=== PATIENT | female | born 1945 | race Caucasian/White ===

== ENCOUNTER 2018-01-17 13:58 | Observation (INO) ==
[2018-01-17 14:32] LABS: Basophils # 0.1 10*3/uL (0.0-0.2); Basophils % 0.4 % (0.0-0.8); Eosinophils # 0.3 10*3/uL (0.0-0.87); Eosinophils % 2.1 % (0.00-10.9); Hematocrit 36.2 VOL% (35.7-47.0); Hemoglobin 11.6 GM/DL (12.0-16.0); Immature Granulocytes % 0.6 %; Immature Granulocytes Absolute 0.07 #; Lymphocytes # 1.8 10*3/uL (1.4-4.0); Lymphocytes % 15.7 % (21.3-54.2); Mean Corpuscular Hemoglobin 27 PG (27-34); Mean Corpuscular Volume 84.2 FL (87-102); Mean Platelet Volume 9.5 FL (9.6-12.0); Monocytes # 0.9 10*3/uL (0.11-0.8); Monocytes % 7.4 % (1.7-12.7); Neutrophils # 8.6 10*3/uL (1.4-7.4); Neutrophils % 73.8 % (38.7-73.9); Platelet Count 288 T/CUMM (130-400); Red Cell Distribution Width 13.8 % (9.3-17.3); White Blood Count 11.7 T/CUMM (4-12)
[2018-01-17 15:07] LABS: Albumin 3.5 G/DL (3.4-5.0); Bilirubin,Total 0.4 MG/DL (0.2-1.0); Calcium 8.7 MG/DL (8.5-10.1); Osmolality,Calculated 284.5 MOS/KG (273-304); Potassium 4.5 MMOL/L (3.5-5.1); Total Protein 6.5 G/DL (6.4-8.3)
[2018-01-17] MEDS ORDERED: NITROGLYCERIN SL 0.4 MG TABLET SL ONE (15:17)
[2018-01-17] MEDS ORDERED: ENOXAPARIN 30 MG/0.3 ML SYRINGE SUBCUT STA (15:23)
[2018-01-17] MEDS ORDERED: ENOXAPARIN 100 MG/ML SYRINGE SUBCUT ONE (16:03)
[2018-01-17] MEDS ORDERED: MAGNESIUM SULF RIDER 2 GM in PREMIX 1 EACH IV PRN ×2 (16:27→16:35)
[2018-01-17] MEDS ORDERED: MORPHINE 2 MG/1 ML SYRINGE IV PRN (16:27)
[2018-01-17] MEDS ORDERED: ZALEPLON 5 MG CAPSULE PO PRN (16:27)
[2018-01-17] MEDS ORDERED: POTASSIUM CHLORIDE 20 MEQ TABLET PO PRN (16:27)
[2018-01-17] MEDS ORDERED: NITROGLYCERIN 2% OINT 1 INCH/GM PACK TOP SCH (16:27)
[2018-01-17] MEDS ORDERED: BISACODYL 5 MG TABLET PO PRN (16:27)
[2018-01-17] MEDS ORDERED: ACETAMINOPHEN 325 MG TABLET PO PRN (16:27)
[2018-01-17] MEDS ORDERED: INSULIN REGULAR 100 UNIT/ML SUBCUT ONE (16:27)
[2018-01-17] MEDS ORDERED: ONDANSETRON 4 MG/2 ML VIAL IV PRN (16:27)
[2018-01-17] MEDS ORDERED: SODIUM CHLORIDE 0.45% 1,000 ML IV SCH (16:30)
[2018-01-17] MEDS ORDERED: CLOPIDOGREL 75 MG TABLET PO SCH (16:30)
[2018-01-17] MEDS ORDERED: METOPROLOL TARTRATE 25 MG TABLET PO STA (16:34)
[2018-01-17] MEDS ORDERED: DIAZEPAM 5 MG TABLET PO PRN (16:35)
[2018-01-17] MEDS ORDERED: POTASSIUM CHLORIDE RIDER 10 MEQ in PREMIX 1 EACH IV PRN (16:35)
[2018-01-17 17:14] LABS: INR 0.9; PT Patient Result 9.5 SECS
[2018-01-17] MEDS ORDERED: HEPARIN/NACL 0.9% 2 UNITS/ML 2,000 ML IV ONE (17:25)
[2018-01-17] MEDS ORDERED: LIDOCAINE 1% 20 ML VIAL ONE (17:25)
[2018-01-17] MEDS ORDERED: HYDROmorphone 2 MG/1 ML VIAL ONE (17:26)
[2018-01-17] MEDS ORDERED: MIDAZOLAM 2 MG/2 ML VIAL ONE (17:26)
[2018-01-17] MEDS ORDERED: BIVALIRUDIN 250 MG VIAL IV ONE (18:14)
[2018-01-17] MEDS ORDERED: LABETALOL 20 MG/4 ML SYRINGE IV ONE (18:36)
[2018-01-17] MEDS ORDERED: TICAGRELOR 90 MG TABLET ONE (18:48)
[2018-01-17] MEDS ORDERED: NITROGLYCERIN SL 0.4 MG TABLET SL PRN (19:00)
[2018-01-17] MEDS ORDERED: ROSUVASTATIN 20 MG TABLET PO SCH (21:00)
[2018-01-17] MEDS ORDERED: TICAGRELOR 90 MG TABLET PO SCH (21:00)
[2018-01-17] MEDS: METOPROLOL TARTRATE 25 MG TABLET PO SCH (21:20)
[2018-01-18] MEDS ORDERED: DIAZEPAM 5 MG TABLET PO ONE (07:00)
[2018-01-18] MEDS ORDERED: diphenhydrAMINE CAP 25 MG CAPSULE PO ONE (07:00)
[2018-01-18] MEDS ORDERED: CLOPIDOGREL 300 MG TABLET PO ONE (07:16)
[2018-01-18 07:38] LABS: Basophils % 0.4 % (0.0-0.8); Eosinophils # 0.2 10*3/uL (0.0-0.87); Eosinophils % 2.8 % (0.00-10.9); Hematocrit 33.7 VOL% (35.7-47.0); Hemoglobin 10.6 GM/DL (12.0-16.0); Immature Granulocytes % 0.5 %; Immature Granulocytes Absolute 0.04 #; Lymphocytes # 1.4 10*3/uL (1.4-4.0); Lymphocytes % 16.9 % (21.3-54.2); Mean Corpuscular HGB Conc 31.5 GM/DL (32-36); Mean Corpuscular Hemoglobin 28 PG (27-34); Mean Corpuscular Volume 88.2 FL (87-102); Mean Platelet Volume 9.7 FL (9.6-12.0); Monocytes # 0.7 10*3/uL (0.11-0.8); Monocytes % 8.4 % (1.7-12.7); Neutrophils # 5.9 10*3/uL (1.4-7.4); Platelet Count 236 T/CUMM (130-400); Red Blood Count 3.82 MC/CUMM (3.8-5.5); Red Cell Distribution Width 13.8 % (9.3-17.3); White Blood Count 8.2 T/CUMM (4-12)
[2018-01-18 08:09] VITALS: BP 146/76
[2018-01-18 08:09] LABS: Albumin 3.1 G/DL (3.4-5.0); Bilirubin,Total 0.7 MG/DL (0.2-1.0); Calcium 8.7 MG/DL (8.5-10.1); Potassium 4.7 MMOL/L (3.5-5.1); Risk Ratio 4.48; Total Protein 5.7 G/DL (6.4-8.3)
[2018-01-18] MEDS ORDERED: PANTOPRAZOLE 40 MG TABLET PO SCH (09:00)
[2018-01-18] MEDS ORDERED: ASPIRIN EC 81 MG TABLET PO SCH (09:00)
[2018-01-18] MEDS: METOPROLOL TARTRATE 25 MG TABLET PO SCH (09:28)
[2018-01-18] MEDS ORDERED: ATORVASTATIN 40 MG TABLET PO SCH (21:00)
[2018-01-19] MEDS ORDERED: CLOPIDOGREL 75 MG TABLET PO SCH (09:00)
== END 2018-01-18 10:50 | disposition home or self-care (01) ==
LOC: N.ED 13:58 → N.EDINP 13:58 → N.TELES 19:38
PROVIDERS: ADMIT Internal Medicine Cardiovascular Disease; ATTEND Internal Medicine Cardiovascular Disease
PROC: CLCCHCL (ICD-10-PCS; 2018-01-17 18:15)

== ENCOUNTER 2022-01-01 12:01 | Inpatient (IN) ==
[2022-01-01] MEDS ORDERED: SODIUM CHLORIDE 0.9% 1,000 ML IV STA (13:13)
[2022-01-01] MEDS ORDERED: MORPHINE 4 MG/1 ML VIAL IV STA (13:13)
[2022-01-01] MEDS ORDERED: ONDANSETRON 4 MG/2 ML VIAL IV STA (13:13)
[2022-01-01 13:16] LABS: Basophils % 0.5 % (0.0-0.8); Eosinophils # 0.4 10*3/uL (0.0-0.87); Eosinophils % 4.2 % (0.00-10.9); Hematocrit 26.7 VOL% (35.7-47.0); Hemoglobin 8.6 GM/DL (12.0-16.0); Immature Granulocytes % 1.1 %; Lymphocytes # 1.8 10*3/uL (1.4-4.0); Lymphocytes % 20.5 % (21.3-54.2); Mean Corpuscular HGB Conc 32.2 GM/DL (32-36); Mean Platelet Volume 9.7 FL (9.6-12.0); Monocytes % 4.7 % (1.7-12.7); NRBC # 0.02 10*3/uL; Platelet Count 248 T/CUMM (130-400); Red Blood Count 3.07 MC/CUMM (3.8-5.5); Red Cell Distribution Width 14.9 % (9.3-17.3); White Blood Count 8.7 T/CUMM (4-12)
[2022-01-01 13:24] LABS: Partial Thromboplastin Time 23.7 SECS (23.8-32.1)
[2022-01-01 13:32] LABS: Alanine Aminotransferase 19 U/L (13-56); Albumin 3.1 G/DL (3.4-5.0); Alkaline Phosphatase 74 U/L (45-117); Aspartate Amino Transferase 12 U/L (0-37); Bilirubin,Total < 0.39 MG/DL (0.20-1.00); Blood Urea Nitrogen 19 MG/DL (7-18); Calcium 8.4 MG/DL (8.5-10.1); Carbon Dioxide 28 MMOL/L (21-32); Estimated Glom Filtration Rate 64 ML/MIN; Glucose 261 MG/DL (74-106); Osmolality,Calculated 285.7 MOS/KG (273-304); Potassium 4.2 MMOL/L (3.5-5.1); Sodium 138 MMOL/L (136-145); Total Protein 6.4 G/DL (6.4-8.2)
[2022-01-01] MEDS ORDERED: PIPERACILLIN/TAZOBACTAM 3,375 MG in SODIUM CHLORIDE 0.9% 100 ML IV STA (15:24)
[2022-01-01] MEDS ORDERED: GLUCAGON 1 MG VIAL IM PRN (15:42)
[2022-01-01] MEDS ORDERED: ACETAMINOPHEN 325 MG TABLET PO PRN (15:42)
[2022-01-01] MEDS ORDERED: ONDANSETRON 4 MG/2 ML VIAL IV PRN (15:42)
[2022-01-01] MEDS ORDERED: MORPHINE 4 MG/1 ML VIAL IV PRN (15:42)
[2022-01-01] MEDS ORDERED: DEXTROSE 10% 250 ML BAG IV PRN (15:50)
[2022-01-01] MEDS: cefTRIAXone 2,000 MG in SODIUM CHLORIDE 0.9% 100 ML IV SCH (17:45)
[2022-01-01] MEDS: SODIUM CHLORIDE 0.9% 1,000 ML IV SCH (17:45)
[2022-01-01] MEDS: INSULIN REGULAR 100 UNIT/ML SUBCUT SCH ×2 (17:45→22:09)
[2022-01-01] MEDS: metroNIDAZOLE INJ 500 MG/100 ML PREMIX IV SCH (18:16)
[2022-01-01] MEDS: ATORVASTATIN 20 MG TABLET PO SCH (22:00)
[2022-01-02 03:59] LABS: Basophils % 0.4 % (0.0-0.8); Eosinophils # 0.3 10*3/uL (0.0-0.87); Eosinophils % 4.5 % (0.00-10.9); Hematocrit 24.6 VOL% (35.7-47.0); Hemoglobin 7.7 GM/DL (12.0-16.0); Immature Granulocytes % 0.8 %; Immature Granulocytes Absolute 0.06 #; Lymphocytes # 1.7 10*3/uL (1.4-4.0); Lymphocytes % 22.6 % (21.3-54.2); Mean Corpuscular HGB Conc 31.3 GM/DL (32-36); Mean Corpuscular Volume 87.5 FL (87-102); Mean Platelet Volume 9.5 FL (9.6-12.0); Monocytes % 6.3 % (1.7-12.7); Neutrophils % 65.4 % (38.7-73.9); Platelet Count 223 T/CUMM (130-400); Red Blood Count 2.81 MC/CUMM (3.8-5.5); White Blood Count 7.4 T/CUMM (4-12)
[2022-01-02 04:26] LABS: Calcium 7.7 MG/DL (8.5-10.1); Osmolality,Calculated 285.1 MOS/KG (273-304); Potassium 3.8 MMOL/L (3.5-5.1)
[2022-01-02] MEDS: SODIUM CHLORIDE 0.9% 1,000 ML IV SCH ×2 (06:54→22:19)
[2022-01-02] MEDS: metroNIDAZOLE INJ 500 MG/100 ML PREMIX IV SCH ×3 (07:20→23:33)
[2022-01-02] MEDS: INSULIN REGULAR 100 UNIT/ML SUBCUT SCH ×4 (07:35→21:42)
[2022-01-02] MEDS: carvediloL 6.25 MG TABLET PO SCH (09:42)
[2022-01-02] MEDS ORDERED: SODIUM CHLORIDE 0.9% 1,000 ML IV PRN (12:20)
[2022-01-02] MEDS: PANTOPRAZOLE 40 MG VIAL IV SCH (12:36)
[2022-01-02] MEDS: cefTRIAXone 2,000 MG in SODIUM CHLORIDE 0.9% 100 ML IV SCH (19:08)
[2022-01-02] MEDS: ATORVASTATIN 20 MG TABLET PO SCH (20:47)
[2022-01-03] MEDS: SODIUM CHLORIDE 0.9% 1,000 ML IV SCH ×3 (01:31→09:33)
[2022-01-03] MEDS: metroNIDAZOLE INJ 500 MG/100 ML PREMIX IV SCH (06:10)
[2022-01-03 07:31] VITALS: BP 153/59
[2022-01-03] MEDS: INSULIN REGULAR 100 UNIT/ML SUBCUT SCH ×2 (07:59→11:30)
[2022-01-03 08:20] LABS: Basophils % 0.2 % (0.0-0.8); Eosinophils # 0.3 10*3/uL (0.0-0.87); Eosinophils % 4.1 % (0.00-10.9); Hematocrit 28.7 VOL% (35.7-47.0); Immature Granulocytes % 0.8 %; Immature Granulocytes Absolute 0.07 #; Lymphocytes # 1.4 10*3/uL (1.4-4.0); Lymphocytes % 16.8 % (21.3-54.2); Mean Corpuscular HGB Conc 31.4 GM/DL (32-36); Mean Corpuscular Volume 87.2 FL (87-102); Mean Platelet Volume 9.2 FL (9.6-12.0); Monocytes % 5.4 % (1.7-12.7); NRBC # 0.03 10*3/uL; Neutrophils % 72.7 % (38.7-73.9); Platelet Count 240 T/CUMM (130-400); Red Blood Count 3.29 MC/CUMM (3.8-5.5); Red Cell Distribution Width 14.9 % (9.3-17.3); White Blood Count 8.3 T/CUMM (4-12)
[2022-01-03 08:34] LABS: Osmolality,Calculated 278.7 MOS/KG (273-304); Potassium 3.9 MMOL/L (3.5-5.1)
[2022-01-03] MEDS: carvediloL 6.25 MG TABLET PO SCH (08:48)
[2022-01-03] MEDS: PANTOPRAZOLE 40 MG VIAL IV SCH (08:49)
[2022-01-03] MEDS ORDERED: MAGNESIUM SULF RIDER 2 GM/50 ML PREMIX IV PRN (11:20)
[2022-01-03] MEDS ORDERED: MAGNESIUM SULF RIDER 4 GM/100 ML PREMIX IV PRN (11:20)
== END 2022-01-03 15:31 | disposition home or self-care (01) | DRG 378 ==
LOC: N.ED 12:01 → N.EDINP 15:42 → SUATTDRO 15:42 → N.3E 01-02 18:10
PROVIDERS: ADMIT Emergency Medicine; ATTEND Internal Medicine Geriatric Medicine